=== PATIENT | male | born 1985 | race Two or more races ===

== ENCOUNTER 2024-04-28 17:31 | Inpatient (IN) | payer MEDICAID, OTHER ==
[~2024-04-28] VITALS: Ht 167.6 cm; Wt 77.5 kg
[2024-04-28] MEDS: SODIUM CHLORIDE 0.9% 1,000 ML IV ONE ×2 (18:07→22:00)
[2024-04-28] MEDS: ONDANSETRON HCL 4 MG/2 ML VIAL IV ONE (18:07)
[2024-04-28 18:10] LABS: Basophils # (auto) 0 10 ^3/uL (0-0.2); Basophils % (auto) 0.1 % (0.0-2.0); Eosinophils # (auto) 0 10 ^3/uL (0-0.8); Eosinophils % (auto) 0.1 % (0.0-7.0); Hematocrit 34.1 % (41.0-53.0); Hemoglobin 11.9 g/dL (13.5-17.5); Lymphocytes # (auto) 1.7 10 ^3/uL (0.4-5.4); Lymphocytes % (auto) 14.6 % (10.0-50.0); Mean Corpuscular Hemoglobin 30.8 pg (28.0-32.0); Mean Corpuscular Hgb Conc. 34.8 g/dL (32.0-36.0); Mean Corpuscular Volume 88.4 fL (80.0-100.0); Monocytes # (auto) 1.1 10 ^3/uL (0-1.3); Neutrophils % (auto) 76.2 % (37.0-80.0); Nucleated Red Blood Cells % 0.1 %; Red Blood Cells 3.85 10^6/uL (4.5-5.90); Red Cell Distribution Width 12.8 % (11.8-14.3); White Blood Cell 11.8 10^3/uL (4.4-10.8)
[2024-04-28 18:15] VITALS: PULSE 107; RESP 20; O2SAT 98
[2024-04-28] MEDS: PANTOPRAZOLE 40 MG/10 ML VIAL INJ IV ONE (18:24)
[2024-04-28 18:31] LABS: Alanine Aminotransferase 19 U/L (7-40); Albumin 3.4 g/dL (3.2-4.8); Alkaline Phosphatase 53 U/L (46-116); Anion Gap 4 (5-15); Aspartate Aminotransferase 9 U/L (13-40); BUN/Creatinine Ratio 26.7 (10.0-20.0); Blood Alcohol < 3.0 mg/dL (<10); Blood Urea Nitrogen 24 mg/dL (9-23); Calcium 8.4 mg/dL (8.7-10.4); Carbon Dioxide 27 mmol/L (20-30); Chloride 107 mmol/L (98-107); Glucose 137 mg/dL (74-106); Sodium 138 mmol/L (136-145)
[2024-04-28 18:32] LABS: Bilirubin, Total 0.4 mg/dL (0.2-1.0); Total Protein 5.5 g/dL (5.7-8.2)
[2024-04-28 18:37] LABS: INR 1.1 (0.9-1.15); Partial Thromboplastin Time 22.7 SEC (24.5-34.5); Prothrombin Time 11.6 sec (9.3-11.8)
[2024-04-28 19:15] VITALS: RESP 20; O2SAT 99
[2024-04-28 19:32] LABS: Lipase 28 U/L (12-53)
[2024-04-28 21:21] LABS: Urine Bacteria FEW /hpf (None Seen); Urine Blood Negative /uL (Negative); Urine Clarity Clear (Clear); Urine Color Light-Yellow (Yellow); Urine Protein, UAD TRACE (Negative); Urine Specific Gravity 1.027 (1.001-1.035); Urine Urobilinogen Normal (Negative); Urine WBC 1 /hpf (0 - 3); Urine pH 6.5 (5.0-9.0)
[2024-04-28] MEDS ORDERED: HYDROcodone-ACET 5/325MG TAB PO PRN (22:15)
[2024-04-28] MEDS ORDERED: MORPHINE SULFATE INJ 2 MG/ml SYRG IV PRN (22:15)
[2024-04-28] MEDS ORDERED: ONDANSETRON HCL 4 MG/2 ML VIAL IV PRN (22:15)
[2024-04-28] MEDS ORDERED: ACETAMINOPHEN 325 MG TAB PO PRN (22:15)
[2024-04-28 22:56] VITALS: PULSE 65
[2024-04-29] VITALS (8 sets, daily range): BP systolic 95–124; BP diastolic 58–78; PULSE 77–98; RESP 18–21; TEMP 97.6–98.9; O2SAT 96–100
[2024-04-29] MEDS ORDERED: PANTOPRAZOLE 40 MG TAB PO SCH (06:00)
[2024-04-29 06:04] LABS: Alanine Aminotransferase 19 U/L (7-40); Albumin 3.6 g/dL (3.2-4.8); Alkaline Phosphatase 47 U/L (46-116); Anion Gap 4 (5-15); Aspartate Aminotransferase 9 U/L (13-40); BUN/Creatinine Ratio 25.4 (10.0-20.0); Bilirubin, Total 0.4 mg/dL (0.2-1.0); Blood Urea Nitrogen 17 mg/dL (9-23); Calcium 8.4 mg/dL (8.7-10.4); Carbon Dioxide 27 mmol/L (20-30); Chloride 107 mmol/L (98-107); Glucose 99 mg/dL (74-106); Sodium 138 mmol/L (136-145); Total Protein 5.7 g/dL (5.7-8.2)
[2024-04-29 06:24] LABS: Basophils # (auto) 0 10 ^3/uL (0-0.2); Eosinophils # (auto) 0 10 ^3/uL (0-0.8); Hematocrit 30.5 % (41.0-53.0); Hemoglobin 10.8 g/dL (13.5-17.5); Lymphocytes # (auto) 2.3 10 ^3/uL (0.4-5.4); Lymphocytes % (auto) 19.7 % (10.0-50.0); Mean Corpuscular Hemoglobin 31.4 pg (28.0-32.0); Mean Corpuscular Hgb Conc. 35.3 g/dL (32.0-36.0); Mean Corpuscular Volume 88.8 fL (80.0-100.0); Monocytes # (auto) 0.9 10 ^3/uL (0-1.3); Monocytes % (auto) 7.5 % (0.0-12.0); Neutrophils # (auto) 8.4 10 ^3/uL (1.6-8.6); Neutrophils % (auto) 72.8 % (37.0-80.0); Red Blood Cells 3.43 10^6/uL (4.5-5.90); Red Cell Distribution Width 12.9 % (11.8-14.3); White Blood Cell 11.5 10^3/uL (4.4-10.8)
[2024-04-29] MEDS: PANTOPRAZOLE 40 MG/10 ML VIAL INJ IV SCH ×2 (08:56→20:19)
[2024-04-29] MEDS ORDERED: PANTOPRAZOLE 40 MG/10 ML VIAL INJ IV SCH (10:00)
[2024-04-29 14:29] LABS: INR 1.05 (0.9-1.15); Partial Thromboplastin Time 25.1 SEC (24.5-34.5); Prothrombin Time 11.1 sec (9.3-11.8)
[2024-04-30] VITALS (11 sets, daily range): BP systolic 93–102; BP diastolic 48–68; PULSE 72–103; RESP 16–22; TEMP 97.7–98.4; O2SAT 96–100
[2024-04-30 06:03] LABS: Basophils # (auto) 0 10 ^3/uL (0-0.2); Eosinophils # (auto) 0 10 ^3/uL (0-0.8); Eosinophils % (auto) 0.2 % (0.0-7.0); Hematocrit 25.6 % (41.0-53.0); Lymphocytes # (auto) 2.8 10 ^3/uL (0.4-5.4); Lymphocytes % (auto) 26.6 % (10.0-50.0); Mean Corpuscular Hemoglobin 31.5 pg (28.0-32.0); Mean Corpuscular Hgb Conc. 35.2 g/dL (32.0-36.0); Mean Corpuscular Volume 89.6 fL (80.0-100.0); Monocytes # (auto) 0.7 10 ^3/uL (0-1.3); Monocytes % (auto) 6.9 % (0.0-12.0); Neutrophils # (auto) 6.9 10 ^3/uL (1.6-8.6); Neutrophils % (auto) 66.3 % (37.0-80.0); Nucleated Red Blood Cells % 0.1 %; Red Blood Cells 2.85 10^6/uL (4.5-5.90); Red Cell Distribution Width 12.7 % (11.8-14.3); White Blood Cell 10.4 10^3/uL (4.4-10.8)
[2024-04-30 06:17] LABS: % Iron Saturation 45.9 % (20-55)
[2024-04-30 06:21] LABS: Alanine Aminotransferase 25 U/L (7-40); Alkaline Phosphatase 45 U/L (46-116); Anion Gap 5 (5-15); Blood Urea Nitrogen 19 mg/dL (9-23); Calcium 8.5 mg/dL (8.7-10.4); Carbon Dioxide 27 mmol/L (20-30); Chloride 104 mmol/L (98-107); Glucose 95 mg/dL (74-106); Potassium 3.9 mmol/L (3.5-5.1); Sodium 136 mmol/L (136-145)
[2024-04-30 06:22] LABS: Albumin 3.4 g/dL (3.2-4.8); Aspartate Aminotransferase 20 U/L (13-40); Bilirubin, Total 0.3 mg/dL (0.2-1.0); Total Protein 5.4 g/dL (5.7-8.2)
[2024-04-30] MEDS ORDERED: FLUMAZENIL 0.1 MG/ML INJ 10ML MDV IV ONE (08:25)
[2024-04-30] MEDS ORDERED: NALOXONE HCL 0.4 MG/ML VIAL ONE (08:25)
[2024-04-30] MEDS ORDERED: SODIUM CHLORIDE LOCK 10 ML ONE (08:26)
[2024-04-30] MEDS: LIDOCAINE VISCOUS 2% 15ML UD ONE (09:49)
[2024-04-30] MEDS: MIDAZOLAM HCL 5 MG/ML-1ML VIAL ONE (09:51)
[2024-04-30] MEDS: diphenhdrAMINE HCL 50 MG/1 ML VL ONE (09:51)
[2024-04-30] MEDS: fentaNYL CITRATE 100 MCG/2 ML VL ONE (09:51)
[2024-04-30] MEDS ORDERED: SUCR1TAB PO (12:58)
[2024-04-30] MEDS ORDERED: PANT40TA2 PO (12:58)
[2024-04-30] MEDS: SUCRALFATE 1 GM/10 ML ORAL SUSP GT SCH (15:21)
[2024-04-30 19:00] LABS: Basophils # (auto) 0 10 ^3/uL (0-0.2); Basophils % (auto) 0.2 % (0.0-2.0); Eosinophils # (auto) 0 10 ^3/uL (0-0.8); Lymphocytes # (auto) 2.8 10 ^3/uL (0.4-5.4); Monocytes # (auto) 1.2 10 ^3/uL (0-1.3); Monocytes % (auto) 8.3 % (0.0-12.0); Red Cell Distribution Width 12.8 % (11.8-14.3)
[2024-04-30 19:01] LABS: Eosinophils % (auto) 0.1 % (0.0-7.0); Hematocrit 19.3 % (41.0-53.0); Lymphocytes % (auto) 19.2 % (10.0-50.0); Mean Corpuscular Hemoglobin 30.7 pg (28.0-32.0); Mean Corpuscular Hgb Conc. 34.3 g/dL (32.0-36.0); Mean Corpuscular Volume 89.4 fL (80.0-100.0); Neutrophils # (auto) 10.5 10 ^3/uL (1.6-8.6); Neutrophils % (auto) 72.2 % (37.0-80.0); Nucleated Red Blood Cells % 0.2 %; Red Blood Cells 2.16 10^6/uL (4.5-5.90); White Blood Cell 14.6 10^3/uL (4.4-10.8)
[2024-04-30 19:21] LABS: Hemoglobin 6.6 g/dL (13.5-17.5)
[2024-04-30 20:15] LABS: Amphetamine Screen, Urine Pos (NEGATIVE); Barbiturate Scree,Urine Neg (NEGATIVE); Benzodiazephine Screen, Urine Pos (NEGATIVE); Cocaine Screen, Urine Neg (NEGATIVE); Opiate Scree,Urine Neg (NEGATIVE)
[2024-04-30 20:16] LABS: Cannabinoid Screen, Urine Neg (NEGATIVE); Phencyclidine Screen, Urine Neg (NEGATIVE)
[2024-04-30] MEDS ORDERED: SUCRALFATE 1 GM/10 ML ORAL SUSP GT SCH (21:00)
[2024-04-30] MEDS: SUCRALFATE 1 GM/10 ML ORAL SUSP PO SCH (23:02)
[2024-05-01] VITALS (11 sets, daily range): BP systolic 97–117; BP diastolic 47–67; PULSE 68–102; RESP 16–22; TEMP 97.9–98.6; O2SAT 98–100
[2024-05-01 05:59] LABS: Basophils # (auto) 0 10 ^3/uL (0-0.2); Basophils % (auto) 0.1 % (0.0-2.0); Hemoglobin 7.6 g/dL (13.5-17.5); Mean Corpuscular Volume 87.9 fL (80.0-100.0); Neutrophils # (auto) 7.1 10 ^3/uL (1.6-8.6); Nucleated Red Blood Cells % 0.5 %
[2024-05-01 06:01] LABS: Eosinophils # (auto) 0 10 ^3/uL (0-0.8); Eosinophils % (auto) 0.3 % (0.0-7.0); Hematocrit 21.5 % (41.0-53.0); Lymphocytes # (auto) 3.3 10 ^3/uL (0.4-5.4); Lymphocytes % (auto) 28.4 % (10.0-50.0); Mean Corpuscular Hemoglobin 31.1 pg (28.0-32.0); Mean Corpuscular Hgb Conc. 35.3 g/dL (32.0-36.0); Monocytes # (auto) 1.1 10 ^3/uL (0-1.3); Monocytes % (auto) 9.5 % (0.0-12.0); Neutrophils % (auto) 61.7 % (37.0-80.0); Red Blood Cells 2.44 10^6/uL (4.5-5.90); Red Cell Distribution Width 12.9 % (11.8-14.3); White Blood Cell 11.5 10^3/uL (4.4-10.8)
[2024-05-01 06:16] LABS: Alanine Aminotransferase 45 U/L (7-40); Albumin 3.1 g/dL (3.2-4.8); Alkaline Phosphatase 48 U/L (46-116); Anion Gap 1 (5-15); Aspartate Aminotransferase 30 U/L (13-40); BUN/Creatinine Ratio 25.3 (10.0-20.0); Blood Urea Nitrogen 19 mg/dL (9-23); Calcium 8.2 mg/dL (8.7-10.4); Carbon Dioxide 30 mmol/L (20-30); Chloride 106 mmol/L (98-107); Glucose 103 mg/dL (74-106); Potassium 3.8 mmol/L (3.5-5.1); Sodium 137 mmol/L (136-145)
[2024-05-01 06:17] LABS: Bilirubin, Total 0.3 mg/dL (0.2-1.0); Total Protein 4.7 g/dL (5.7-8.2)
[2024-05-01 15:12] LABS: Hemoglobin 7.7 g/dL (13.5-17.5)
[2024-05-01 15:14] LABS: Hematocrit 21.9 % (41.0-53.0)
[2024-05-01 17:10] LABS: Hematocrit 21.8 % (41.0-53.0); Hemoglobin 7.7 g/dL (13.5-17.5)
[2024-05-02] VITALS (18 sets, daily range): BP systolic 93–129; BP diastolic 47–76; PULSE 63–87; RESP 12–19; TEMP 97.7–98.6; O2SAT 96–100
[2024-05-02 05:56] LABS: Red Blood Cells 2.21 10^6/uL (4.5-5.90)
[2024-05-02 06:00] LABS: Hematocrit 19.7 % (41.0-53.0); Mean Corpuscular Hemoglobin 31.7 pg (28.0-32.0); Mean Corpuscular Hgb Conc. 35.7 g/dL (32.0-36.0); Red Cell Distribution Width 13.3 % (11.8-14.3); White Blood Cell 10.2 10^3/uL (4.4-10.8)
[2024-05-02 06:07] LABS: Alanine Aminotransferase 39 U/L (7-40); Alkaline Phosphatase 42 U/L (46-116); Anion Gap 4 (5-15); Blood Urea Nitrogen 14 mg/dL (9-23); Calcium 8.2 mg/dL (8.7-10.4); Carbon Dioxide 30 mmol/L (20-30); Chloride 106 mmol/L (98-107); Glucose 91 mg/dL (74-106); Magnesium 1.9 mg/dL (1.6-2.6); Potassium 3.8 mmol/L (3.5-5.1); Sodium 140 mmol/L (136-145)
[2024-05-02 06:08] LABS: Albumin 3.2 g/dL (3.2-4.8); Aspartate Aminotransferase 21 U/L (13-40)
[2024-05-02 06:09] LABS: BUN/Creatinine Ratio 19.7 (10.0-20.0); Bilirubin, Total 0.2 mg/dL (0.2-1.0)
[2024-05-02 06:50] LABS: Band Neutrophils % (manual) 0; Basophils % (manual) 0 (0.0-2.0); Blast Cells 0; Eosinophils % (manual) 0 (0-7); Metamyelocytes % 0; Myelocytes % 0; Promyelocytes % 0; Reactive Lymphocytes 0
[2024-05-02 08:34] LABS: Lymphocytes % (manual) 34 (10.0-50.0); Monocytes % (manual) 8 (0-12); Platelet Estimate Adequate
[2024-05-02 10:52] LABS: % Iron Saturation 16.7 % (20-55)
[2024-05-02] MEDS: IRON SUCROSE COMPLEX 100 ML IV SCH (17:46)
[2024-05-02 18:39] LABS: Red Cell Distribution Width 13.8 % (11.8-14.3)
[2024-05-02 18:51] LABS: Hematocrit 28.1 % (41.0-53.0); Hemoglobin 9.6 g/dL (13.5-17.5); Mean Corpuscular Hemoglobin 30.2 pg (28.0-32.0); Mean Corpuscular Hgb Conc. 34.2 g/dL (32.0-36.0); Mean Corpuscular Volume 88.3 fL (80.0-100.0); Red Blood Cells 3.19 10^6/uL (4.5-5.90); White Blood Cell 11.8 10^3/uL (4.4-10.8)
[2024-05-02 18:58] LABS: Band Neutrophils % (manual) 0; Basophils % (manual) 0 (0.0-2.0); Blast Cells 0; Eosinophils % (manual) 0 (0-7); Myelocytes % 0; Promyelocytes % 0; Reactive Lymphocytes 0
[2024-05-02 19:31] LABS: Lymphocytes % (manual) 15 (10.0-50.0); Metamyelocytes % 1; Monocytes % (manual) 4 (0-12)
[2024-05-02 19:32] LABS: Platelet Estimate Adequate; RBC Morphology Normal
[2024-05-03 05:00] VITALS: BP 99/59; PULSE 79; RESP 20; TEMP 98.6; O2SAT 99
[2024-05-03 06:36] LABS: Hematocrit 27.1 % (41.0-53.0); Hemoglobin 9.5 g/dL (13.5-17.5); Mean Corpuscular Hemoglobin 30.9 pg (28.0-32.0); Mean Corpuscular Volume 88.3 fL (80.0-100.0); Red Blood Cells 3.06 10^6/uL (4.5-5.90); Red Cell Distribution Width 13.7 % (11.8-14.3); White Blood Cell 8.8 10^3/uL (4.4-10.8)
[2024-05-03 06:55] LABS: Band Neutrophils % (manual) 0; Basophils % (manual) 0 (0.0-2.0); Blast Cells 0; Eosinophils % (manual) 0 (0-7); Metamyelocytes % 0; Myelocytes % 0; Promyelocytes % 0; Reactive Lymphocytes 0
[2024-05-03 07:10] LABS: Anion Gap 0 (5-15); Calcium 8.9 mg/dL (8.7-10.4); Carbon Dioxide 33 mmol/L (20-30); Chloride 106 mmol/L (98-107); Sodium 139 mmol/L (136-145)
[2024-05-03 07:16] LABS: BUN/Creatinine Ratio 14.1 (10.0-20.0); Blood Urea Nitrogen 11 mg/dL (9-23); Glucose 79 mg/dL (74-106)
[2024-05-03 08:15] VITALS: PULSE 61
[2024-05-03 08:38] VITALS: BP 103/60; PULSE 64; RESP 16; TEMP 98.3; O2SAT 100
[2024-05-03] MEDS ORDERED: PANT40TA2 PO (11:19)
[2024-05-03 11:40] LABS: Lymphocytes % (manual) 32 (10.0-50.0); Monocytes % (manual) 8 (0-12); Platelet Estimate Adequate
[2024-05-03 13:00] VITALS: BP 115/83; PULSE 72; RESP 16; TEMP 97.7; O2SAT 100
== END 2024-05-03 15:05 | disposition home or self-care (01) | DRG 241 ==
LOC: EDBD 17:31 → ER 17:31 → OVERFLOW 22:04 → WEST WING 04-29 02:55 → TELE-WESTW 04-29 16:05
PROVIDERS: ADMIT Internal Medicine; ATTEND Internal Medicine
PROC: 0DB98ZX Excision of Duodenum, Via Natural or Artificial Opening Endoscopic, Diagnostic (ICD-10-PCS; 2024-04-30)
PROC: 0DB68ZX Excision of Stomach, Via Natural or Artificial Opening Endoscopic, Diagnostic (ICD-10-PCS; 2024-04-30)
PROC: 30233N1 Transfusion of Nonautologous Red Blood Cells into Peripheral Vein, Percutaneous Approach (ICD-10-PCS; principal; 2024-05-01)
DX: K29.01 Acute gastritis with bleeding (principal); D62 Acute posthemorrhagic anemia; K29.81 Duodenitis with bleeding; I95.1 Orthostatic hypotension; E86.1 Hypovolemia; K26.4 Chronic or unspecified duodenal ulcer with hemorrhage; F19.10 Other psychoactive substance abuse, uncomplicated; Z79.899 Other long term (current) drug therapy
CPT/HCPCS: 36415; 43239; 74176; 80048; 80053; 80307; 80320; 81001; 82270; 82728; 82962; 83540; 83550; 83690; 83735; 85007; 85014; 85018; 85025; 85027; 85610; 85730; 86850; 86900; 86901; 86920; 93005; 96374; 99291; G0378; J1756; J2250; J2470

== ENCOUNTER 2024-12-16 11:28 | Emergency (ER) | payer MEDICAID ==
[~2024-12-16] VITALS: Ht 165.1 cm; Wt 81.0 kg
[~2024-12-16 11:28] MED LIST: PANT40TA2 PO; SUCR1TAB PO
--- NOTE | 2024-12-16 12:04 | ED.PDOC ---
GI ASSESSMENT HPI Comments 39 y/o M, presents to the ED for CC of abdominal pain. Patient states, he has been experiencing epigastric abdominal pain x2days. Patient complains of current 8/10 pain. Patient denies change in diet, nausea, vomiting, or diarrhea. No other symptoms or modifying factors present at this time. Time Seen by MD: 11:50 Primary Care Provider: UNKNOWN Reviewed Notes: Nurses Notes, Medications, Allergies Allergies: Coded Allergies: NO KNOWN ALLERGIES (Unverified , 04/28/24) Home Meds Active Scripts Ondansetron Odt 4MG Tab (ZOFRAN PO) 4 Mg Tb, 4 MG PO Q8HP PRN for 5 Days, #15 TAB ODT TAB-DISSOLVE IN MOUTH, THEN SWALLOW Prov:CARINE OVERTON MD 12/16/24 Pantoprazole Sodium Sesquihydr (Protonix) 40 Mg Tab, 40 MG PO BID, #60 TAB 2 Refills Prov:CARINE OVERTON MD 12/16/24 Sucralfate (Sucralfate) 1 Gm Tab, 1 GM PO QID for 30 Days, #120 TAB 2 Refills Prov:AFSHAN JIMÉNEZ RESIDENT 04/30/24 Information Source: Patient Mode of Arrival: Ambulatory Timing: Days Duration: Since onset Prehospital treatment: None Quality: None Vomitus: None Stool: Tarry Severity: Moderate Recent: None Recent Hx of: None Pain Location: Epigastric, None Modifying Factors: Nothing Associated sign and symptoms: None Past Medical History PAST MEDICAL HISTORY: Denies Surgical History: Denies all surgeries Family History Family History: Reviewed,noncontributory to illness, No family hx of Cancer, No family hx of DM, No family hx of Heart [place], No family hx of HTN, No family hx ofKidney [place]r, No family hx of Liver [place], No family hx of Lung [place]r, No family hx of Stroke Social History Smoker: Non-Smoker Alcohol: Denies ETOH Use Drugs: Denies Drug Use Lives In: Home Constitutional: denies: chills, diaphoresis, fatigue, fever, malaise, sweats, weakness, others EENTM: denies: blurred vision, double vision, ear bleeding, ear discharge, ear drainage, ear pain, ear ringing, eye pain, eye redness, hearing loss, mouth pain, mouth swelling, nasal discharge, nose bleeding, nose congestion, nose pain, photophobia, tearing, throat pain, throat swelling, voice changes, others Respiratory: denies: cough, hemoptysis, orthopnea, SOB at rest, shortness of breath, SOB with excertion, stridor, wheezing, others Cardiovascular: denies: chest pain, dizzy spells, diaphoresis, Dyspnea on exertion, edema, irregular heart beat, left arm pain, lightheadedness, palpitations, PND, syncope, others Gastrointestinal: reports: abdominal pain; denies: abdomen distended, blood streaked bowels, constipated, diarrhea, dysphagia, difficulty swallowing, hematemesis, melena, nausea, poor appetite, poor fluid intake, rectal bleeding, rectal pain, vomiting, others Genitourinary: denies: burning, dysuria, flank pain, frequency, hematuria, incontinence, penile discharge, penile sore, pain, testicle pain, testicle swelling, urgency, others Neurological: denies: dizziness, fainting, headache, left sided numbness, left sided weakness, numbness, paresthesia, pre-existing deficit, right sided numbness, right sided weakness, seizure, speech problems, tingling, tremors, weakness, others Musculoskeletal: denies: back pain, gout, joint pain, joint swelling, muscle pain, muscle stiffness, neck pain, others Integumetry: denies: bruises, change in color, change in hair/nails, dryness, laceration, lesions, lumps, rash, wounds, others Allergic/Immunocompromised: denies: Difficulty Healing, Frequent Infections, Hives, Itching, others Hematologic/Lymphatic: denies: anemia, blood clots, easy bleeding, easy bruising, swollen glands, others Endocrine: denies: excessive hunger, excessive sweating, excessive thirst, excessive urination, flushing, intolerance to cold, intolerance to heat, unexplained weight gain, unexplained weight loss, others Psychiatric: denies: anxiety, bipolar disorder, depression, hopeless, panic disorder, schizophrenia, sleepless, suicidal, others All Other Systems: Reviewed and Negative Physical Exam General Appearance: No Apparent Distress HEENT: Normal ENT Inspection, Pharynx Normal, TMs Normal Neck: Full Range of Motion, Non-Tender, Normal, Normal Inspection Respiratory: Chest Non-Tender, Lungs Clear, No Accessory Muscle Use, No R espiratory Distress, Normal Breath Sounds Cardiovascular: No Edema, No JVD, No Murmur, No Gallop, Normal Peripheral Pulses, Regular Rate/Rhythm Breast Exam: Deferred Gastrointestinal: No Organomegaly, No Pulsatile Mass, Normal Bowel Sounds, Soft, Tenderness Genitalia: Deferred Pelvic: Deferred Rectal: Deferred Extremities: No calf tenderness, Normal capillary refill, Normal inspection, Normal range of motion, Non-tender, No pedal edema Musculoskeletal : Apperance: Normal Neurologic: Alert, tar heel II-XII nml as Tested, No Motor Deficits, Normal Affect, Normal Mood, No Sensory Deficits Cerebellar Function: Normal Reflexes: Normal Skin: Dry, Normal Color, Warm Lymphatic: No Adenopathy Was a procedure done? Was a procedure done?: No GI differential Dx Differential Diagnosis: Gastritis/PUD, Gastroenteritis, Electrolyte Imbalance, Food Poisoning, Bacterial, Viral X-Ray, Labs, Meds, VS Vital Signs Date Time Temp Pulse Resp B/P (MAP) Pulse Ox O2 Delivery O2 Flow Rate FiO2 12/16/24 13:43 78 16 97 Room Air* 0 21 12/16/24 13:26 78 16 97 Room Air 12/16/24 13:26 98.2 78 16 120/62 (81) 97 98.2 12/16/24 11:38 98.0 81 18 113/5 (41) 98 98.0 Lab Test 12/16/24 11:59 12/16/24 11:55 Range/Units White Blood Count 7.5 4.4-10.8 10^3/uL Red Blood Count 4.96 4.5-5.90 10^6/uL Hemoglobin 15.3 13.5-17.5 g/dL Hematocrit 43.6 41.0-53.0 % Mean Corpuscular Volume 87.8 80.0-100.0 fL Mean Corpuscular Hemoglobin 30.8 28.0-32.0 pg Mean Corpuscular Hemoglobin Concent 35.1 32.0-36.0 g/dL Red Cell Distribution Width 13.0 11.8-14.3 % Platelet Count 246 140-450 10^3/uL Mean Platelet Volume 8.0 6.9-10.8 fL Neutrophils (%) (Auto) 68.7 37.0-80.0 % Lymphocytes (%) (Auto) 22.9 10.0-50.0 % Monocytes (%) (Auto) 6.8 0.0-12.0 % Eosinophils (%) (Auto) 1.3 0.0-7.0 % Basophils (%) (Auto) 0.3 0.0-2.0 % Neutrophils # (Auto) 5.1 1.6-8.6 10 ^3/uL Lymphocytes # (Auto) 1.7 0.4-5.4 10 ^3/uL Monocytes # (Auto) 0.5 0-1.3 10 ^3/uL Eosinophils # (Auto) 0.1 0-0.8 10 ^3/uL Basophils # (Auto) 0 0-0.2 10 ^3/uL Nucleated Red Blood Cells 0.1 % Sodium Level 138 136-145 mmol/L Potassium Level 3.5 3.5-5.1 mmol/L Chloride Level 107 98-107 mmol/L Carbon Dioxide Level 23 20-31 mmol/L Anion Gap 8 5-15 Blood Urea Nitrogen 10 9-23 mg/dL Creatinine 0.86 0.700-1.30 mg/dL Glomerular Filtration Rate Calc 114 >90 mL/min BUN/Creatinine Ratio 11.6 10.0-20.0 Serum Glucose 157 H 74-106 mg/dL Calcium Level 9.2 8.7-10.4 mg/dL Total Bilirubin 0.4 0.2-1.0 mg/dL Aspartate Amino Transferase (AST) 19 13-40 U/L Alanine Aminotransferase (ALT) 20 7-40 U/L Alkaline Phosphatase 90 46-116 U/L Total Protein 7.2 5.7-8.2 g/dL Albumin 4.4 3.2-4.8 g/dL Lipase 31 12-53 U/L Urine Color Yellow Yellow Urine Clarity Clear Clear Urine pH 6.0 5.0-9.0 Urine Specific [place] 1.029 1.001-1.035 Urine Protein Trace H Negative Urine Ketones Negative Negative Urine Blood Negative Negative /uL Urine Nitrite Negative Negative Urine Bilirubin Negative Negative Urine Urobilinogen 2 H Negative mg/dL Urine Leukocyte Esterase Negative Negative /uL Urine RBC <1 0 - 3 /hpf Urine Microscopic WBC < 1 0-3 /HPF Urine Squamous Epithelial Cells None seen <5 /hpf Urine Bacteria None seen None Seen /hpf Urine Mucus Few None Seen Urine Glucose Normal Normal mg/dL Current Medications Medications (Trade) Dose Ordered Sig/Rachna Route Start Time Stop Time Status Last Admin Pantoprazole Sodium (Protonix Tablet) 40 mg ONCE ONCE PO 12/16/24 12:00 12/16/24 12:01 DC 12/16/24 13:23 Ondansetron HCl (Zofran Po) 4 mg ONCE ONCE PO 12/16/24 12:00 12/16/24 12:01 DC 12/16/24 13:24 GALLBLADDER US: IMPRESSION: Normal abdominal ultrasound. Time of 1ST Reevaluation: 12:20 Reevaluation 1ST: Unchanged Patient Education/Counseling: Diagnosis, Treatment, Prognosis, Need For Follow Up Family Education/Counseling: No Family Present Departure 1 Departure Time of Disposition: 14:44 Impression: Primary Impression: Acute gastritis Qualified Codes: K29.00 - Acute gastritis without bleeding Disposition: HOME / SELF CARE / HOMELESS Condition: Fair e-Prescriptions Ondansetron Odt 4MG Tab (ZOFRAN PO) 4 Mg Tb 4 MG PO Q8HP PRN for 5 Days, #15 TAB ODT TAB-DISSOLVE IN MOUTH, THEN SWALLOW Prov: CARINE OVERTON MD 12/16/24 Pantoprazole Sodium Sesquihydr (Protonix) 40 Mg Tab 40 MG PO BID, #60 TAB 2 Refills Prov: CARINE OVERTON MD 12/16/24 Discharged With: Self Critical Care Note Critical Care Time?: No Stability Stability form required: No Heart Score Heart Score: Heart Score Response (Comments) Value History N/A 0 EKG N/A 0 Age N/A 0 Risk Factors N/A 0 Troponin N/A 0 Total 0 I personally scribed for CARINE OVERTON MD ([email or web address]) on 12/16/24 at 12:04. Electronically submitted by Melody Knapp ([email or web address]). I personally scribed for CARINE OVERTON MD ([email or web address]) on 12/16/24 at 12:11. Electronically submitted by Melody Knapp ([email or web address]). I personally scribed for CARINE OVERTON MD ([email or web address]) on 12/16/24 at 13:39. Electronically submitted by Melody Knapp ([email or web address]). CARINE OVERTON MD Dec 16, 2024 12:04
[2024-12-16 12:12] LABS: Basophils # (auto) 0 10 ^3/uL (0-0.2); Basophils % (auto) 0.3 % (0.0-2.0); Eosinophils # (auto) 0.1 10 ^3/uL (0-0.8); Eosinophils % (auto) 1.3 % (0.0-7.0); Hematocrit 43.6 % (41.0-53.0); Hemoglobin 15.3 g/dL (13.5-17.5); Lymphocytes # (auto) 1.7 10 ^3/uL (0.4-5.4); Lymphocytes % (auto) 22.9 % (10.0-50.0); Mean Corpuscular Hemoglobin 30.8 pg (28.0-32.0); Mean Corpuscular Hgb Conc. 35.1 g/dL (32.0-36.0); Mean Corpuscular Volume 87.8 fL (80.0-100.0); Monocytes # (auto) 0.5 10 ^3/uL (0-1.3); Monocytes % (auto) 6.8 % (0.0-12.0); Neutrophils # (auto) 5.1 10 ^3/uL (1.6-8.6); Neutrophils % (auto) 68.7 % (37.0-80.0); Nucleated Red Blood Cells % 0.1 %; Platelet Count (auto) 246 10^3/uL (140-450); Red Blood Cells 4.96 10^6/uL (4.5-5.90); White Blood Cell 7.5 10^3/uL (4.4-10.8)
[2024-12-16 12:28] LABS: Alanine Aminotransferase 20 U/L (7-40); Albumin 4.4 g/dL (3.2-4.8); Alkaline Phosphatase 90 U/L (46-116); Anion Gap 8 (5-15); Aspartate Aminotransferase 19 U/L (13-40); BUN/Creatinine Ratio 11.6 (10.0-20.0); Bilirubin, Total 0.4 mg/dL (0.2-1.0); Blood Urea Nitrogen 10 mg/dL (9-23); Calcium 9.2 mg/dL (8.7-10.4); Carbon Dioxide 23 mmol/L (20-31); Lipase 31 U/L (12-53); Potassium 3.5 mmol/L (3.5-5.1); Sodium 138 mmol/L (136-145); Total Protein 7.2 g/dL (5.7-8.2)
[2024-12-16 12:29] LABS: Chloride 107 mmol/L (98-107); Glucose 157 mg/dL (74-106)
[2024-12-16] MEDS: PANTOPRAZOLE 40 MG TAB PO ONE (13:23)
[2024-12-16] MEDS: ONDANSETRON ODT 4 MG TAB PO ONE (13:24)
--- NOTE | 2024-12-16 13:27 | DVH ---
US GALLBLADDER HISTORY: pain COMPARISON: None TECHNIQUE: Transverse and longitudinal grayscale and color sonographic images were obtained of the ab domen. FINDINGS: Liver: - Size: 14.2 cm - Echogenicity: Normal - Surface Contour: Smooth - Liver Lesion(s): None - Portal Vein: Patent and forward flowing. - Bile Ducts: Normal. The common bile duct measures 2.3 mm. Gallbladder: Normal. The sonographic Negrete sign is negative . Pancreas: Portions not obscured by bowel gas are normal. Kidneys: - Right kidney size: 9.4 cm. There is no hydronephrosis, renal calculi, or mass lesion. Aorta and Inferior Vena Cava: The visualized portions of the abdominal aorta and intrahepatic vena ca va are normal. Other: None IMPRESSION: Normal abdominal ultrasound.
[2024-12-16 13:32] LABS: Urine Bacteria None Seen /hpf (None Seen)
[2024-12-16 13:41] LABS: Urine Blood Negative /uL (Negative); Urine Clarity Clear (Clear); Urine Color Yellow (Yellow); Urine Mucus FEW (None Seen); Urine Protein, UAD TRACE (Negative); Urine Specific Gravity 1.029 (1.001-1.035); Urine Squamous Epithelial Cell None Seen /hpf (<5); Urine Urobilinogen 2 mg/dL (Negative); Urine WBC < 1 /HPF (0-3)
[2024-12-16 13:43] VITALS: PULSE 78; RESP 16; O2SAT 97
[2024-12-16] MEDS ORDERED: PANT40TA2 PO (14:43)
[2024-12-16] MEDS ORDERED: ZOFR4T PO (14:43)
[2024-12-16 14:52] VITALS: BP 109/69; PULSE 71; RESP 17; TEMP 98.7; O2SAT 97
== END 2024-12-16 14:54 | disposition home or self-care (01) ==
LOC: ER 11:34
DX: K29.00 Acute gastritis without bleeding (principal); Z79.899 Other long term (current) drug therapy
CPT/HCPCS: 36415; 76705; 80053; 81001; 83690; 85025; 99284; Q0162

== ENCOUNTER 2025-04-23 19:46 | Emergency (ER) | payer MEDICAID ==
[~2025-04-23] VITALS: Ht 170.2 cm; Wt 78.3 kg
[~2025-04-23 19:46] MED LIST changes: +ZOFR4T PO
--- NOTE | 2025-04-23 20:25 | ED.PDOC ---
GI ASSESSMENT HPI Comments 40-year-old male who came to ER for abdominal pain. Patient states he has been having constant epigastric abdominal pain, described as burning, 8/10 intensity, nonradiating, past 2 days. Patient states he has similar symptoms before diagnosed with gastritis. Denies any nausea, vomiting or changes in bowel chase bits. REVIEW OF SYSTEMS: No fever, no chills, or fatigue HEENT: No sore throat, no earache, no congestion, no neck pain. Cardiac: No chest pain. No palpitations. Lungs: No shortness of breath, no cough. GI: No nausea, no vomiting, no diarrhea, no constipation, (+) abdominal pain : No dysuria, frequency, or urgency. No hematuria. Musculoskeletal: No joint pain , no joint swelling, no extremity edema. Skin: No rash, no itching. Neuro: No headache, no dizziness, no weakness PHYSICAL EXAM: General: Awake, alert and oriented. No acute distress. Skin: Skin in warm, dry and intact without rashes or lesions. HEENT: The head is normocephalic and atraumatic. Conjunctivae are clear without exudates or hemorrhage. Sclera is non-icteric. Neck: Normal range of motion. No JVD. Cardiac: Regular rate Respiratory: No signs of respiratory distress. No Stridor. Abdomen: Positive epigastric tenderness without guarding, rigidity or distention. Extremities: Upper and lower extremities are atraumatic in appearance without deformity. Neurological: The patient is awake, alert and oriented to person, place, and time with normal speech. Speech is clear. There is no facial asymmetry. Psychiatric: Appropriate mood and affect. Good judgement and insight. Chief Complaint: Abdominal Pain Time Seen by MD: 20:25 Primary Care Provider: ? Reviewed Notes: Nurses Notes Allergies: Coded Allergies: NO KNOWN ALLERGIES (Unverified , 04/28/24) Home Meds Active Scripts Omeprazole (Gnp Omeprazole) 20 Mg Tab, 1 TAB PO DAILY for 7 Days, #7 TAB 1 Refill Prov:LUCIA STRICKLAND MD 04/23/25 Ondansetron Odt 4MG Tab (ZOFRAN PO) 4 Mg Tb, 4 MG PO Q8HP PRN for 5 Days, #15 TAB ODT TAB-DISSOLVE IN MOUTH, THEN SWALLOW Prov:CARINE OVERTON MD 12/16/24 Pantoprazole Sodium Sesquihydr (Protonix) 40 Mg Tab, 40 MG PO BID, #60 TAB 2 Refills Prov:CARINE OVERTON MD 12/16/24 Sucralfate (Sucralfate) 1 Gm Tab, 1 GM PO QID for 30 Days, #120 TAB 2 Refills Prov:AFSHAN JIMÉNEZ RESIDENT 04/30/24 Information Source: Patient Mode of Arrival: Ambulatory Timing: Hours Duration: Since onset Quality: Burning Past Medical History PAST MEDICAL HISTORY: PUD Past Medical History (Other): Hernia Surgical History: Denies all surgeries Surgical History (Other): Endoscopy Family History Family History: Reviewed,noncontributory to illness, No family hx of Cancer, No family hx of DM, No family hx of Heart oleksandr, No family hx of HTN, No family hx ofKidney oleksandr, No family hx of Liver oleksandr, No family hx of Lung oleksandr, No family hx of Stroke Social History Smoker: Non-Smoker Alcohol: Denies ETOH Use Drugs: Methamphetamine, Other (Fentanyl) Lives In: Home EKG EKG : Pulse Rate (adult): 83 Cardiac Rhythm: NSR Was a procedure done? Was a procedure done?: No GI differential Dx Differential Diagnosis: Diverticular disease, Gastritis/PUD, Gastroenteritis, Hernia, Pancreatitis X-Ray, Labs, Meds, VS Vital Signs Date Time Temp Pulse Resp B/P (MAP) Pulse Ox O2 Delivery O2 Flow Rate FiO2 04/23/25 23:09 89 20 96 Room Air 04/23/25 23:09 98.1 89 20 131/87 (102) 96 98.1 04/23/25 22:06 83 04/23/25 21:17 83 04/23/25 19:47 98.3 111 18 128/81 100 98.3 Lab Test 04/23/25 20:24 Range/Units White Blood Count 7.0 4.4-10.8 10^3/uL Red Blood Count 5.19 4.5-5.90 10^6/uL Hemoglobin 15.8 13.5-17.5 g/dL Hematocrit 44.7 41.0-53.0 % Mean Corpuscular Volume 86.1 80.0-100.0 fL Mean Corpuscular Hemoglobin 30.5 28.0-32.0 pg Mean Corpuscular Hemoglobin Concent 35.5 32.0-36.0 g/dL Red Cell Distribution Width 13.0 11.8-14.3 % Platelet Count 262 140-450 10^3/uL Mean Platelet Volume 8.1 6.9-10.8 fL Neutrophils (%) (Auto) 63.1 37.0-80.0 % Lymphocytes (%) (Auto) 29.6 10.0-50.0 % Monocytes (%) (Auto) 6.3 0.0-12.0 % Eosinophils (%) (Auto) 0.7 0.0-7.0 % Basophils (%) (Auto) 0.3 0.0-2.0 % Neutrophils # (Auto) 4.4 1.6-8.6 10 ^3/uL Lymphocytes # (Auto) 2.1 0.4-5.4 10 ^3/uL Monocytes # (Auto) 0.4 0-1.3 10 ^3/uL Eosinophils # (Auto) 0 0-0.8 10 ^3/uL Basophils # (Auto) 0 0-0.2 10 ^3/uL Nucleated Red Blood Cells 0.1 % Sodium Level 144 136-145 mmol/L Potassium Level 3.4 L 3.5-5.1 mmol/L Chloride Level 105 98-107 mmol/L Carbon Dioxide Level 27 20-31 mmol/L Anion Gap 12 5-15 Blood Urea Nitrogen 14 9-23 mg/dL Creatinine 1.12 0.700-1.30 mg/dL Glomerular Filtration Rate Calc 86 >90 mL/min BUN/Creatinine Ratio 12.5 10.0-20.0 Serum Glucose 98 74-106 mg/dL Lactic Acid Level 1.2 0.4-2.0 mmol/L Calcium Level 9.5 8.7-10.4 mg/dL Total Bilirubin 0.6 0.2-1.0 mg/dL Aspartate Amino Transferase (AST) 30 13-40 U/L Alanine Aminotransferase (ALT) 21 7-40 U/L Alkaline Phosphatase 78 46-116 U/L Troponin I High Sensitivity 5 </=54 ng/L Total Protein 7.8 5.7-8.2 g/dL Albumin 5.0 H 3.2-4.8 g/dL Lipase 33 12-53 U/L ORDERING PHYSICIAN: LUCIA STRICKLAND MD PROCEDURE(s): ABPL - CT AB PEL WO CON-NO ORAL OR IV REASON: Epigastric abdominal pain ORDER NUMBER(s): [id number], ACCESSION NUMBER(s): [id number] Exam: CT CT AB PEL WO CON-NO ORAL OR IV History: Epigastric abdominal pain Comparison Study: CT CT AB PEL WO CON-NO ORAL OR IV on DOS: 04/28/24 TECHNIQUE: Multidetector CT of the abdomen and pelvis without IV contrast. Axial, coronal and sagittal multiplanar reformats were obtained from the axial data set by the technologist. Radiation Dose Information: CT Dose: CTDI volume is 6.94 mGy. Dose-length product is 404.6 mGy*cm FINDINGS: The lung bases are clear. Partially visualized heart is unremarkable. Liver, spleen, gallbladder, pancreas and adrenal glands unremarkable. Left renal lower pole parapelvic cysts. Otherwise, kidneys, ureters and urinary bladder unremarkable. Prostate is unremarkable. Gastric wall thickening. Small bowel loops unremarkable. Appendix is unremarkable. Small amount of fecal material within the colon. No evidence of intraperitoneal free air or free fluid. No evidence of aortic aneurysm. No significant lymphadenopathy. Soft tissues unremarkable. Small fat containing right inguinal hernia. No evidence of acute osseous abnormalities. IMPRESSION: Mild gastric wall thickening which may be due to inadequate distention/ mild gastritis. ATED BY: APARNA LAFLEUR DO DICTATED DATE/TIME: 04/23/252157 SIGNED BY: APARNA LAFLEUR DO SIGNED DATE/TIME: 04/23/252157 CC: Time of 1ST Reevaluation: 20:22 Reevaluation 1ST: Unchanged Patient Education/Counseling: Need For Follow Up Family Education/Counseling: No Family Present SEPSIS Sepsis Screen Date sepsis recognized/suspect: Apr 23, 2025 Time Sepsis recognized/suspect: 1946 Recent Procedure: No On Antibiotic Therapy: No Respiratory Rate >20: No Heart Rate >90: No Temp<36 C (96.8 F) or >38.3 C: No SBP <90 or MAP <65 mmHG: No New Acute Mental Status Change: No Is the patient on CPAP, BIPAP,: No Physician Orders Urinalysis (04/23/25 20:15) Ct Ab Pel Wo Con-No Oral Or Iv (04/23/25 20:15) Electrocardigram (04/23/25 20:15) Lidocaine 2% Viscous (Xylocaine 2% Visco (04/23/25 20:15) Vital Signs Date Time Temp Pulse Resp B/P (MAP) Pulse Ox O2 Delivery O2 Flow Rate FiO2 04/23/25 23:09 89 20 96 Room Air 04/23/25 23:09 98.1 89 20 131/87 (102) 96 98.1 04/23/25 22:06 83 04/23/25 21:17 83 04/23/25 19:47 98.3 111 18 128/81 100 98.3 Laboratory Tests Test 04/23/25 20:24 Lactic Acid Level 1.2 mmol/L (0.4-2.0) White Blood Count 7.0 10^3/uL (4.4-10.8) Departure 1 Departure Time of Disposition: 22:47 Impression: Primary Impression: Abdominal pain Qualified Codes: R10.13 - Epigastric pain Disposition: 01 HOME / SELF CARE / HOMELESS Condition: Stable Additional Instructions: INSTRUCCIONES DE IFTIKHAR DE URGENCIAS INSTRUCCIONES: LETICIA ATENTAMENTE TODAS LAS INSTRUCCIONES PROPORCIONADAS EN DANNI PAQUETE. AUNQUE LE HAYAN DADO EL IFTIKHAR DEL DEPARTAMENTO DE EMERGENCIAS, ESTO NO SIGNIFICA QUE TENGA UN "CERTIFICADO DE BUENA DON". [] HOY NO SE CHASE REALIZADO NINGN DIAGNSTICO DEFINITIVO PARA FABIAN SNTOMAS. ES POSIBLE QUE ESTS EN PROCESO DE DESARROLLAR ALNIE ENFERMEDAD GRAVE. ES POR ESO QUE DEBE REGRESAR AL SERVICIO DE URGENCIAS SIN FALTA SI PRESENTA ALGN SNTOMA NUEVO O QUE EMPEORA (ESPECIALMENTE SI FABIAN SNTOMAS INCLUYEN DOLOR EN EL PECHO, DIFICULTAD PARA RESPIRAR, DOLOR ABDOMINAL, FIEBRE, DOLOR DE JP, CONFUSIN, DIFICULTAD PARA LILY O CAMINAR). TAMBIN ES MUY IMPORTANTE QUE CONSULTE A UN MDICO DE ATENCIN PRIMARIA DENTRO DE LOS PRXIMOS 3 A 5 NORMAN PARA REALIZAR UN SEGUIMIENTO. SI NO PUEDE CONSEGUIR ALINE ANIKET, REGRESE AL SERVICIO DE URGENCIAS PARA ALINE NUEVA EVALUACIN. DOLOR ABDOMINAL: INSTRUCCIONES DE CUIDADO IMAGEN DE LOS CUATRO CUADRANTES DEL ABDOMEN. DESCRIPCIN GENERAL EL DOLOR ABDOMINAL TIENE MUCHAS CAUSAS POSIBLES. ALGUNAS NO SON GRAVES Y MEJORAN POR S SOLAS EN UNOS NORMAN. OTRAS REQUIEREN MS PRUEBAS Y TRATAMIENTO. SI EL DOLOR CONTINA O EMPEORA, ES NECESARIO VOLVER A EXAMINARLO Y ES POSIBLE QUE NECESITE MS PRUEBAS PARA AVERIGUAR QU ES LO QUE EST MAL. ES POSIBLE QUE NECESITE ALINE CIRUGA PARA CORREGIR EL PROBLEMA. NO IGNORE LOS SNTOMAS NUEVOS, LINDSAY FIEBRE, NUSEAS Y VMITOS, PROBLEMAS PARA ORINAR, DOLOR QUE EMPEORA Y MAREOS. ESTOS PUEDEN SER SIGNOS DE UN PROBLEMA MS GRAVE. SI NO MEJORA, ES POSIBLE QUE NECESITE MS PRUEBAS O TRATAMIENTO. EL MDICO LO CHASE EXAMINADO CUIDADOSAMENTE, CHRIS PUEDEN SURGIR PROBLEMAS MS ADELANTE. SI NOTA ALGN PROBLEMA O SNTOMAS NUEVOS, BUSQUE TRATAMIENTO MDICO DE INMEDIATO . EL SEGUIMIENTO MDICO ES ALINE PARTE FUNDAMENTAL DE KIMBALL TRATAMIENTO Y KIMBALL SEGURIDAD. ASEGRESE DE PROGRAMAR Y ACUDIR A TODAS LAS CITAS, Y LLAME A KIMBALL MDICO SI TIENE PROBLEMAS. TAMBIN ES ALINE BUENA IDEA SABER LOS RESULTADOS DE FABIAN PRUEBAS Y LLEVAR ALINE LISTA DE LOS MEDICAMENTOS QUE MORIAH. DIAGNOSTIC ASSISTANT PUEDES CUIDARTE EN CASA? DESCANSA HASTA QUE TE SIENTAS MEJOR. PARA PREVENIR LA DESHIDRATACIN, JAEL ABUNDANTE LQUIDO. ELIJA AGUA Y OTROS LQUIDOS CURTIS HASTA QUE SE SIENTA MEJOR. SI TIENE ALINE ENFERMEDAD RENAL, CARDACA O HEPTICA Y DEBE LIMITAR LOS LQUIDOS, CONSULTE CON KIMBALL MDICO ANTES DE AUMENTAR LA CANTIDAD DE LQUIDOS QUE CLALIE. CUANDO SIENTAS GANAS DE COMER, EMPIEZA CON PEQUEAS CANTIDADES. NO TOMES ALCOHOL, CAFENA NI ALIMENTOS PICANTES, CALIENTES O CON ALTO CONTENIDO DE GRASA RICHARD FERDINAND O DOS NORMAN. EVITE LOS MEDICAMENTOS ANTIINFLAMATORIOS LINDSAY LA ASPIRINA, EL IBUPROFENO (ADVIL, MOTRIN) Y EL NAPROXENO (ALEVE). PUEDEN CAUSAR MALESTAR ESTOMACAL. HABLE CON KIMBALL MDICO SI MORIAH ASPIRINA A DIARIO POR OTRO PROBLEMA DE DON. CUNDO DEBES PEDIR AYUDA? LLAME AL 911 EN CUALQUIER MOMENTO EN QUE CREA QUE PUEDE NECESITAR ATENCIN DE EMERGENCIA. POR EJEMPLO, LLAME SI: TE DESMAYASTE (PERDISTE EL CONOCIMIENTO). TIENE HECES DE COLOR MARRN O CON GADIEL JUAN. VOMITAS JUAN O LO QUE PARECEN POSOS DE CAF. TIENES UN DOLOR INTENSO EN EL VIENTRE. LLAME A KIMBALL MDICO AHORA O BUSQUE ATENCIN MDICA INMEDIATA SI: EL DOLOR EMPEORA, ESPECIALMENTE SI SE CONCENTRA EN ALINE CHRISTIANNE DETERMINADA DEL ABDOMEN. TIENE FIEBRE NUEVA O MS IFTIKHAR. LAS HECES SON NEGRAS Y PARECEN ALQUITRN, O TIENEN VETAS DE JUAN. TIENES SANGRADO VAGINAL INESPERADO. TIENE SNTOMAS DE ALINE INFECCIN DEL TRACTO URINARIO. ESTOS PUEDEN INCLUIR: DOLOR AL ORINAR. ORINAR CON MS FRECUENCIA DE LO HABITUAL. JUAN EN LA ORINA. SE SIENTE MAREADO O ATURDIDO, O SIENTE QUE SE PUEDE DESMAYAR. PRESTE ATENCIN A LOS CAMBIOS EN KIMBALL DON Y ASEGRESE DE COMUNICARSE CON KIMBALL MDICO SI: NO ESTS MEJORANDO LINDSAY ESPERABAS. CRDITOS PARA EL DOLOR ABDOMINAL: INSTRUCCIONES DE CUIDADO ACTUALIZADO AL: 2023 AUTOR: PERSONAL DE [facility] Es muy importante que te comuniques con tu mdico de atencin primaria (PCP). Puedes llamar a tu compaa de seguros o verificar tu tarjeta de seguro para averiguar mark es tu PCP.O llama al [phone] para programar aline aniket con un nuevo proveedor de atencin primaria.POR QU NECESITAS UN PCP:Establecerse y lily regularmente a un PCP y someterse a exmenes de rutina son vitales para mantener aline buena don. Tu PCP acta lindsay tu principal socio en don, ayudndote a mantenerte kamran, gestionar condiciones crnicas y detectar problemas potenciales a tiempo. Los exmenes de rutina, lindsay mamografas o colonoscopias, pueden detectar enfermedades lindsay el cncer temprano, cuando el tratamiento suele ser ms efectivo.Aline prueba de deteccin es lindsay un chequeo rpido que hace tu mdico para lily si hay problemas comenzando en tu cuerpo, incluso cuando te sientes ragini, para poder encontrarlos a tiempo, cuando son ms fciles de solucionar.Por qu establecer aline relacin con un mdico de atencin primaria (PCP)?Cuidado Preventivo:Tu PCP se enfoca en prevenir enfermedades a travs de chequeos regulares, controles, vacunaciones y asesoramiento sobre la don adaptados a tus necesidades. Manejo de Enfermedades Crnicas: Si tienes aline condicin crnica, lindsay diabetes o hipertensin, tu mdico de cabecera puede ayudarte a manejarla de manera efectiva a travs del monitoreo, la gestin de medicamentos y recomendaciones sobre el estilo de bolivar. Deteccin Temprana: Las visitas regulares permiten que tu mdico de cabmiguelra supervise tu don a lo anny del tiempo, identifique cambios sutiles y ordene exmenes o pruebas necesarias para detectar problemas potenciales a tiempo. Recurso de Confianza: Tu mdico de chelsira te conoce, as lindsay tu historial mdico y tus preocupaciones, convirtindolo en un recurso de confianza para todas tus preguntas relacionadas con la don. Derivaciones: Si necesitas atencin especializada, tu mdico kingsleyra te referir a los especialistas apropiados y ayudar a coordinar tu atencin. Continuidad de la Atencin: Tu mdico de chelsira asegura que tu atencin mdica est coordinada, especialmente despus de estancias en el hospital o visitas a otros especialistas. Por qu son importantes los exmenes de rutina? Deteccin Temprana: Muchas enfermedades graves lindsay el cncer, la diabetes y las enfermedades cardacas. Las enfermedades se pueden tratar con ms xito cuando se detectan a tiempo. Exmenes lindsay pruebas de laboratorio, chequeos de presin arterial, mamografas, colonoscopias y pruebas de Papanicolaou estn diseados para detectar estas enfermedades a tiempo. Prevencin de enfermedades: Algunas pruebas pueden ayudar a prevenir el desarrollo de enfermedades. Tranquilidad: Saber que ests al da con tus exmenes puede proporcionar tranquilidad y reducir la ansiedad sobre problemas de don potenciales. En resumen, establecer aline relacin con un mdico de atencin primaria y seguir fabian recomendaciones para exmenes de rutina es importante para mantenerse saludable y gestionar tu don de manera efectiva. Es aline inversin en tu bienestar que puede tianna librado a anny plazo. e-Prescriptions Omeprazole (Gnp Omeprazole) 20 Mg Tab 1 TAB PO DAILY for 7 Days, #7 TAB 1 Refill Prov: LUCIA STRICKLAND MD 04/23/25 Comments MDM: 40-year-old male with epigastric abdominal pain. No peritoneal signs on a bdominal exam. No evidence of acute abdomen at this time. patient is well appearing. Labs show no leukocytosis or elevation of LFTs. Imaging shows no acute process. Patient is afebrile. Patient is not hypotensive. Low suspicion for acute hepatobiliary disease (including acute cholecystitis, acute pancreatitis, PUD (including perforation), acute infectious process (pneumonia, hepatitis, pyelonephritis), acute appendicitis, vascular catastrophe, bowel obstructions, viscous perforation. Presentation not consistent with other acute, emergent causes of abdominal pain at this time. I reviewed the following notes from the pt's past medical encounters: N/A The following tests were ordered, and results were reviewed by me: (See diagnostic results section) The following test were independently interpreted by me: N/A Additional information was gathered from interviewing the following independent historians: N/A I reviewed and agreed with the following test results read by other providers: CT abdomen and pelvis I discussed treatments and results with patient Decision regarding hospitalization or escalation of hospital level of care: Risks and benefits of admission for further treatment of patient's condition was considered however due to patient's stable condition patient will be discharged to follow up closely or return to care for worsening of condition or inability to follow up. Critical Care Note Critical Care Time?: No Stability Stability form required: No Heart Score Heart Score: Heart Score Response (Comments) Value History N/A 0 EKG N/A 0 Age N/A 0 Risk Factors N/A 0 Troponin N/A 0 Total 0 I personally scribed for LUCIA STRICKLAND MD ([email or web address]) on 04/23/25 at 20:25. Electronically submitted by Long Pinedo ([facility]). I personally scribed for LUCIA STRICKLAND MD ([email or web address]) on 04/23/25 at 22:06. Electronically submitted by Long Pinedo ([facility]). I personally scribed for LUCIA STRICKLAND MD ([email or web address]) on 04/24/25 at 00:14. Electronically submitted by Long Pinedo ([email or web address]). LUCIA STRICKLAND MD Apr 23, 2025 20:25
[2025-04-23 20:41] LABS: Hematocrit 44.7 % (41.0-53.0); Hemoglobin 15.8 g/dL (13.5-17.5); Mean Corpuscular Hemoglobin 30.5 pg (28.0-32.0); Mean Corpuscular Volume 86.1 fL (80.0-100.0); Nucleated Red Blood Cells % 0.1 %
[2025-04-23 21:06] LABS: Alanine Aminotransferase 21 U/L (7-40); Alkaline Phosphatase 78 U/L (46-116); Anion Gap 12 (5-15); BUN/Creatinine Ratio 12.5 (10.0-20.0); Bilirubin, Total 0.6 mg/dL (0.2-1.0); Blood Urea Nitrogen 14 mg/dL (9-23); Calcium 9.5 mg/dL (8.7-10.4); Carbon Dioxide 27 mmol/L (20-31); Chloride 105 mmol/L (98-107); Glucose 98 mg/dL (74-106); Lipase 33 U/L (12-53); Sodium 144 mmol/L (136-145); Total Protein 7.8 g/dL (5.7-8.2)
[2025-04-23 21:07] LABS: Albumin 5.0 g/dL (3.2-4.8); Potassium 3.4 mmol/L (3.5-5.1)
--- NOTE | 2025-04-23 22:00 | DVH ---
Exam: CT CT AB PEL WO CON-NO ORAL OR IV History: Epigastric abdominal pain Comparison Study: CT CT AB PEL WO CON-NO ORAL OR IV on DOS: 04/28/24 TECHNIQUE: Multidetector CT of the abdomen and pelvis without IV contrast. Axial, coronal and sagitta l multiplanar reformats were obtained from the axial data set by the technologist. Radiation Dose Information: CT Dose: CTDI volume is 6.94 mGy. Dose-length product is 404.6 mGy*cm FINDINGS: The lung bases are clear. Partially visualized heart is unremarkable. Liver, spleen, gallbladder, pancreas and adrenal glands unremarkable. Left renal lower pole parapelvic cysts. Otherwise, kidneys, ureters and urinary bladder unremarkable. Prostate is unremarkable. Gastric wall thickening. Small bowel loops unremarkable. Appendix is unremarkable. Small amount of f ecal material within the colon. No evidence of intraperitoneal free air or free fluid. No evidence of aortic aneurysm. No significant lymphadenopathy. Soft tissues unremarkable. Small fat containing right inguinal hernia. No evidence of acute osseous a bnormalities. IMPRESSION: Mild gastric wall thickening which may be due to inadequate distention/ mild gastritis.
[2025-04-23] MEDS ORDERED: OMEP20TA PO (22:49)
[2025-04-23] MEDS: PANTOPRAZOLE 40 MG TAB PO ONE (22:57)
[2025-04-23] MEDS: LIDOCAINE VISCOUS 2% 15ML UD PO ONE (22:57)
[2025-04-23] MEDS: MAALOX PLUS or MAALOX 30 ML PO ONE (22:58)
[2025-04-23 23:09] VITALS: BP 131/87; PULSE 89; RESP 20; TEMP 98.1; O2SAT 96
--- NOTE | 2025-04-25 06:51 | ECG ---
[facility] Test Date: 2025-04-23 Test Time: 21:17:15 Pat Name: TETO ACOSTADepartment: ED Room: Gender: M Fire Inspector: : [id number] Requested By: LUCIA STRICKLAND Order Number: [id number] Reading MD: Asa Johns Measurements Intervals [place] Rate: 83 P: 53 NM: 147 QRS: 48 QRSD: 83 T: 40 QT: 354 QTc: 416 Interpretive Statements Sinus rhythm Electronically Signed On 04-25-2025 18:20:43 PDT by Asa Johns Please click the below link to view image of tracing.
== END 2025-04-24 00:28 | disposition home or self-care (01) ==
LOC: ER 19:46
DX: R10.13 Epigastric pain (principal); Z87.11 Personal history of peptic ulcer disease; Z79.899 Other long term (current) drug therapy
CPT/HCPCS: 36415; 74176; 80053; 83605; 83690; 84484; 85025; 93005